=== PATIENT | female | born 1970 | race Caucasian/White ===

== ENCOUNTER → 2023-12-10 08:00 | Outpatient (REF) | payer OTHER, SELFPAY | LOC: WDC 08:00 | PROVIDERS: ATTENDING PHYSICIAN Family Medicine | DX: N92.0 Excessive and frequent menstruation with regular cycle (principal); N64.4 Mastodynia | CPT/HCPCS: 76642; 76830; 76856 ==

== ENCOUNTER → 2023-12-28 06:25 | Outpatient (REF) | payer OTHER, SELFPAY ==
[2023-12-28 07:55] LABS: % Basophils 0.6 % (0-2); % Eosinophils 4.1 % (0-6); % Immature Granulocytes 0.3 % (0-0.5); % Lymphocytes 37.7 % (20.5-51.1); % Monocytes 10.6 % (1.7-9.3); % Neutrophils 46.7 % (42.2-75.2); Absolute Eosinophils 0.3 10^3/uL (0-0.7); Absolute Lymphocytes 2.6 10^3/uL (1.2-3.4); Absolute Monocytes 0.7 10^3/uL (0.1-0.6); Absolute Neutrophils 3.3 10^3/uL (1.4-6.5); Hematocrit 36.7 % (37.0-47.0); Hemoglobin 12.7 g/dL (12.0-16.0); Mean Corp Hgb Conc. 34.6 g/dL (33.0-37.0); Mean Corpuscular Hgb 33.5 pg (27.0-31.0); Mean Corpuscular Volume 96.8 fL (81.0-99.0); Mean Platelet Volume 10.7 fL (7.4-10.4); Nucleated Red Blood Cells % 0 %; Platelet Count 289 10^3/uL (130-400); Red Blood Cell Count 3.79 10^6/uL (4.20-5.40); Red Cell Dist. Width 12.6 % (11.5-14.5)
[2023-12-28 08:27] LABS: ALT (SGPT) 22 U/L (0-35); AST (SGOT) 28 U/L (14-36); Albumin 4.6 g/dl (3.5-5.0); Alkaline Phosphatase 76 U/L (38-126); Blood Urea Nitrogen 11 mg/dl (7-17); Calcium 9.7 mg/dl (8.4-10.2); Carbon Dioxide 28 mmol/L (22-30); Chloride 102 mmol/L (98-107); Glucose 84 mg/dl (70-99); Potassium 4.4 mmol/L (3.5-5.1); Sodium 140 mmol/L (135-145); Total Bilirubin 0.4 mg/dl (0.2-1.3); Total Cholesterol 313 mg/dl (50-199); Total Protein 6.8 g/dl (6.3-8.2); eGFR > 60.00
[2023-12-28 08:28] LABS: Triglyceride 447 mg/dl (10-149); Very Low Density Lipoprotein 89 mg/dl (0-30)
[2023-12-28 08:39] LABS: HDL Cholesterol 139 mg/dl; LDL Cholesterol, Calculated 85 mg/dl
[2023-12-28 08:53] LABS: LDL Cholesterol, Direct 123 mg/dl
[2023-12-28 08:54] LABS: TSH Reflex To Free T4 3.26 uIU/ml (0.47-4.68)
== END ==
LOC: REG 06:25
PROVIDERS: ATTENDING PHYSICIAN Orthopaedic Surgery Adult Reconstructive Orthopaedic Surgery; FAMILY PHYSICIAN Family Medicine
DX: R00.0 Tachycardia, unspecified (principal); R74.8 Abnormal levels of other serum enzymes; E78.1 Pure hyperglyceridemia; M16.12 Unilateral primary osteoarthritis, left hip; M25.552 Pain in left hip
CPT/HCPCS: 36415; 80053; 80061; 83721; 84443; 85025

== ENCOUNTER → 2024-03-02 06:22 | Outpatient (REF) | payer OTHER, SELFPAY ==
[2024-03-02 07:27] LABS: % Basophils 0.6 % (0-2); % Eosinophils 4.2 % (0-6); % Immature Granulocytes 0.3 % (0-0.5); % Lymphocytes 31.9 % (20.5-51.1); Absolute Eosinophils 0.3 10^3/uL (0-0.7); Absolute Lymphocytes 2.1 10^3/uL (1.2-3.4); Absolute Monocytes 0.7 10^3/uL (0.1-0.6); Absolute Neutrophils 3.4 10^3/uL (1.4-6.5); Hematocrit 34.2 % (37.0-47.0); Hemoglobin 11.7 g/dL (12.0-16.0); Mean Corp Hgb Conc. 34.2 g/dL (33.0-37.0); Mean Corpuscular Hgb 32.9 pg (27.0-31.0); Mean Corpuscular Volume 96.1 fL (81.0-99.0); Mean Platelet Volume 10.5 fL (7.4-10.4); Nucleated Red Blood Cells % 0 %; Platelet Count 287 10^3/uL (130-400); Red Blood Cell Count 3.56 10^6/uL (4.20-5.40); Red Cell Dist. Width 12.5 % (11.5-14.5); White Blood Cell Count 6.5 10^3/uL (4.8-10.8)
[2024-03-02 07:51] LABS: Blood Urea Nitrogen 14 mg/dl (7-17); Calcium 9.6 mg/dl (8.4-10.2); Carbon Dioxide 28 mmol/L (22-30); Chloride 100 mmol/L (98-107); Glucose 99 mg/dl (70-99); Potassium 4.7 mmol/L (3.5-5.1); Sodium 138 mmol/L (135-145); eGFR > 60.00
== END ==
LOC: REG 06:22
PROVIDERS: ATTENDING PHYSICIAN Orthopaedic Surgery Adult Reconstructive Orthopaedic Surgery; FAMILY PHYSICIAN Family Medicine
DX: Z01.818 Encounter for other preprocedural examination (principal)
CPT/HCPCS: 36415; 80048; 85025